=== PATIENT | female | born 2005 ===

== ENCOUNTER 2025-03-22 14:53 | Emergency (ER) | payer SELFPAY ==
[2025-03-22] MEDS ORDERED: ACET-897 PO (15:42)
[2025-03-22] MEDS ORDERED: MULTTAB20 PO (15:42)
[2025-03-24] MEDS ORDERED: MACR100C43 PO (09:01)
== END 2025-03-22 15:12 | disposition admitted as inpatient to this hospital (09) ==
LOC: M ED 14:53
DX: Z53.21 Procedure and treatment not carried out due to patient leaving prior to being seen by health care provider (principal)

== ENCOUNTER 2025-03-22 15:02 | Outpatient (CLI) ==
[~2025-03-22] VITALS: Ht 165.1 cm; Wt 81.0 kg
[2025-03-22 15:27] VITALS: BP 79/52
[2025-03-22 15:42] VITALS: BP 88/52
[2025-03-22] MEDS ORDERED: MULTTAB20 PO (15:42)
[2025-03-22] MEDS ORDERED: ACET-897 PO (15:42)
[2025-03-22] MEDS ORDERED: HOME MED LIST COMPLETE! XX SCH (15:45)
[2025-03-22 16:01] LABS: PLATELET COUNT, AUTOMATED 247 10^3/uL (150-450)
[2025-03-22 16:16] VITALS: BP 111/60
[2025-03-22] MEDS: LACTATED RINGER'S 1000 ML IV STA (16:18)
[2025-03-22] MEDS: LR 1,000 ML IV SCH (16:19)
[2025-03-22 16:40] LABS: ALT/SGPT 11 U/L (7.0-40); AST/SGOT 15 U/L (<34); CALCIUM LEVEL 8.7 MG/DL (8.5-10.1); CARBON DIOXIDE LEVEL 20 MMOL/L (20-31); CHLORIDE LEVEL 106 MMOL/L (98-107); CREATININE FOR GFR 0.48 MG/DL (0.55-1.30); GLOMERULAR FILTRATION RATE > 90.0 (>60); POTASSIUM SERUM 4.0 MMOL/L (3.5-5.1); SODIUM LEVEL 137 MMOL/L (136-145)
[2025-03-22 17:09] LABS: KETONE, URINE AUTO RFX NEGATIVE (NEGATIVE); LEUKOCYTE ESTERASE UR AUTO RFX NEGATIVE (NEGATIVE); MUCUS, URINE RFX SMALL (NEGATIVE); NITRITE, URINE AUTO RFX NEGATIVE (NEGATIVE); RBC, URINE AUTO RFX 0 /HPF (0-3); SQUAM EPITHELIAL CELL UR AURFX 1 /HPF (0-6); WBC, URINE AUTO RFX 3 /HPF (0-3)
[2025-03-22 17:38] VITALS: BP 107/53
[2025-03-24] MEDS ORDERED: MACR100C43 PO (09:01)
== END 2025-03-22 18:13 | disposition home or self-care (01) ==
LOC: M LDO 15:02
PROVIDERS: ATTEND Specialist
DX: O26.893 Other specified pregnancy related conditions, third trimester (principal); R11.0 Nausea; R10.30 Lower abdominal pain, unspecified; Z3A.28 28 weeks gestation of pregnancy